=== PATIENT | female | born 2000 | race African-American/Black ===

== ENCOUNTER 2024-06-18 18:22 | Emergency (ER) | payer OTHER ==
[2024-06-18] MEDS ORDERED: ALBUTEROL 2.5 MG/3 ML NEB SOL ONE ×2 (18:57→19:49)
[2024-06-18] MEDS ORDERED: predniSONE 20 MG TAB ONE (18:57)
[2024-06-18] MEDS ORDERED: IPRATROPIUM BROM 0.5MG/2.5ML ONE (18:57)
[2024-06-18 19:42] LABS: SARS-CoV-2 Antigen CONTROL BLUE LINE VIS/BG OK; SARS-CoV-2 Antigen Rapid Res Negative (Negative)
[2024-06-18] MEDS ORDERED: HYDROCODONE/CHLORPHEN 5 ML/OSYR ONE (19:49)
--- NOTE | 2024-06-18 20:10 | RAD REPORT ---
EXAMINATION: ONE VIEW CHEST XR CLINICAL INDICATION: Female, 23 years old.DYSPNEA TECHNIQUE: 1 View, AP supine, X-ray of the chest was performed. [id number]. COMPARISON: No prior exam. FINDINGS: Lungs and pleura: Clear lungs. No effusion. Heart and mediastinum: Normal heart size. Unremarkable mediastinal contours. Osseous structures: No acute abnormality. Tubes/lines: None Other: None. IMPRESSION: No acute intrathoracic abnormality.
--- NOTE | 2024-06-18 20:58 | ER ---
Nurse's Notes [facility] Name: Lucie Durbin Age: 23 yrs Sex: Female : 2000 Arrival Date: 06/18/2024 Time: 18:22 Bed 15 Private MD: Diagnosis: Acute bronchitis, unspecified Presentation: 06/18 18:52 Chief complaint: Patient states: cough, SOB and diarrhea that began this morning. ss Coronavirus screen: Client denies travel out of the [place] in the last 14 days. Ebola Screen: Patient denies exposure to infectious person. Patient denies travel to an Ebola-affected area in the 21 days before illness onset. Initial Sepsis Screen: Does the patient meet any 2 criteria? HR > 90 bpm. No. Patient's initial sepsis screen is negative. Does the patient have a suspected source of infection? No. Patient's initial sepsis screen is negative. Risk Assessment: Do you want to hurt yourself or someone else? Patient reports no desire to harm self or others. Onset of symptoms was June 18, 2024. 18:52 Method Of Arrival: Ambulatory ss 18:52 Acuity: TEGAN 3 ss Triage Assessment: 18:54 General: Appears in no apparent distress. comfortable, Behavior is calm, cooperative. ss Respiratory: Airway is patent Respiratory effort is even, unlabored, Breath sounds with wheezes bilaterally. 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 - Infectious Disease History:: Denies. - Social history:: Smoking status: Reported history of juuling and/or vaping. Screenin:14 [facility] ED Fall Risk Assessment (Adult) History of falling in the last 3 months, al5 including since admission No falls in past 3 months (0 pts) Confusion or Disorientation No (0 pts) Intoxicated or Sedated No (0 pts) Impaired Gait No (0 pts) Mobility Assist Device Used No (0 pt) Altered Elimination No (0 pt) Score/Fall Risk Level 0 - 2 = Low Risk Oriented to surroundings, Maintained a safe environment, Hourly rounding (assess needs \T\ fall precautionary measures) done. Abuse screen: Denies threats or abuse. Denies injuries from another. Nutritional screening: No deficits noted. Tuberculosis screening: No symptoms or risk factors identified. Assessment: 19:14 General: Appears in no apparent distress. Behavior is calm, cooperative. Pain: Denies al5 pain. Neuro: Level of Consciousness is awake, alert, obeys commands, Oriented to person, place, time, situation. Cardiovascular: Capillary refill < 3 seconds Patient's skin is warm and dry. Respiratory: Airway is patent Respiratory effort is even, unlabored, Respiratory pattern is regular, symmetrical, Breath sounds with wheezes. Respiratory: Reports shortness of breath. GI: Abdomen is flat, non-distended, patient states she has been experiencing some nausea. : No signs and/or symptoms were reported regarding the genitourinary system. EENT: No signs and/or symptoms were reported regarding the EENT system. Derm: Skin is intact, Skin is pink, warm \T\ dry. normal. Musculoskeletal: No signs and/or symptoms reported regarding the musculoskeletal system. 21:08 Reassessment: Patient appears in no apparent distress at this time. Patient and/or al5 family updated on plan of care and expected duration. Pain level reassessed. Patient is alert, oriented x 3, equal unlabored respirations, skin warm/dry/pink. Patient states feeling better. Patient states symptoms have improved. Vital Signs: 18:52 BP 138 / 83; Pulse 113; Resp 20; Temp 98.6(O); Pulse Ox 98% ; Weight 61.23 kg; Height 5 ss ft. 2 in. ; Pain 0/10; 19:17 BP 119 / 85; Pulse 102; Resp 19; Pulse Ox 100% on Nebulizer Mask; al5 19:30 BP 111 / 79; Pulse 102; Resp 18; Pulse Ox 100% on R/A; al5 20:00 BP 120 / 77; Pulse 100; Resp 18; Pulse Ox 100% on R/A; al5 20:30 BP 113 / 74; Pulse 88; Resp 18; Pulse Ox 100% on R/A; al5 21:00 BP 103 / 74; Pulse 85; Resp 18; Pulse Ox 98% on R/A; al5 18:52 Body Mass Index 24.69 (61.23 kg, 157.48 cm) ss 18:52 Pain Scale: Adult ss ED Course: 18:37 Patient arrived in ED. im 18:38 Su Chisholm FNP-C [facility]. kb 18:38 Ward Friedman MD is Attending Physician. kb 18:54 Triage completed. ss 18:54 Arm band placed on right wrist. ss 19:14 Delia Velasco, VIOLETTA is Primary Nurse. al5 19:14 Patient has correct armband on for positive identification. Bed in low position. Call al5 light in reach. Side rails up X 1. Provided Education on: medications. 19:14 No provider procedures requiring assistance completed. al5 19:16 Flu Sent. al5 19:16 SARS-COV-2 Antigen Rapid Sent. al5 19:52 Chest Single View XRAY In Process Unspecified. EDMS 21:09 Patient did not have IV access during this emergency room visit. al5 Administered Medications: 19:16 Drug: Albuterol Inhalation 2.5 mg Inhalation once Route: Inhalation; al5 19:50 Follow up: Response: Other; breathing is better, but is still experiencing shortness of al5 breath 19:16 Drug: Ipratropium Inhalation Aerosol 0.5 mg Inhalation once Route: Inhalation; al5 19:16 Drug: predniSONE PO 40 mg PO once Route: PO; al5 20:12 Follow up: Response: No adverse reaction; Wheezing diminished al5 19:52 Drug: Albuterol Inhalation 2.5 mg Inhalation once Route: Inhalation; al5 20:13 Follow up: Response: Other; feeling better al5 19:52 Drug: Tussionex Pennkinetic ER PO Suspension 5 ml PO once Route: PO; al5 20:12 Follow up: Response: No adverse reaction; No adverse reaction; cough decreased al5 Medication: 19:14 VIS not applicable for this client. al5 Outcome: 20:58 Discharge ordered by . kb 21:09 Discharged to home ambulatory, al5 21:09 Condition: good 21:09 Discharge instructions given to patient, Instructed on discharge instructions, follow up and referral plans. medication usage, Demonstrated understanding of instructions, follow-up care, medications, Prescriptions given X 3, 21:10 Patient left the ED. al5 Signatures: Dispatcher [employer] EDIA Su Chisholm FNP-C FNP-Ckb Blanchard, Shelby, RN RN ss Kathleen Dwyer Amanda, RN RN al5
--- NOTE | 2024-06-18 20:58 | EDPHYS ---
Physician Documentation [facility] Name: Lucie Durbin Age: 23 yrs Sex: Female : 2000 Arrival Date: 06/18/2024 Time: 18:22 Bed 15 Private MD: ED Physician Ward Friedman HPI: 06/18 21:10 This 23 yrs old Black Female presents to ER via Ambulatory with complaints of Flu kb Symptoms. 21:10 Pt is a 23 year old female with a history of childhood asthma who presents for kb shortness of breath, cough and diarrhea that started this morning. Denies fever, chills, sore throat. . 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 - Infectious Disease History:: Denies. - Social history:: Smoking status: Reported history of juuling and/or vaping. ROS: 21:09 Constitutional: As per HPI kb Exam: 21:09 Constitutional: This is a well developed, well nourished patient who is awake, alert, kb and in no acute distress. Head/Face: Normocephalic, atraumatic. ENT: Moist Mucous membranes Cardiovascular: Regular rate Abdomen/GI: Soft, non-tender. No distention Skin: Warm, dry with normal turgor. Normal color. MS/ Extremity: Pulses equal, no cyanosis. Neurovascular intact. Full, normal range of motion. Neuro: Awake and alert, GCS 15, oriented to person, place, time, and situation. Moves all extremities. Normal gait. 21:09 Respiratory: the patient does not display signs of respiratory distress, Respirations: normal, Breath sounds: wheezing: inspiratory expiratory that is mild, is scattered, Vital Signs: 18:52 BP 138 / 83; Pulse 113; Resp 20; Temp 98.6(O); Pulse Ox 98% ; Weight 61.23 kg; Height 5 ss ft. 2 in. ; Pain 0/10; 19:17 BP 119 / 85; Pulse 102; Resp 19; Pulse Ox 100% on Nebulizer Mask; al5 19:30 BP 111 / 79; Pulse 102; Resp 18; Pulse Ox 100% on R/A; al5 20:00 BP 120 / 77; Pulse 100; Resp 18; Pulse Ox 100% on R/A; al5 20:30 BP 113 / 74; Pulse 88; Resp 18; Pulse Ox 100% on R/A; al5 21:00 BP 103 / 74; Pulse 85; Resp 18; Pulse Ox 98% on R/A; al5 18:52 Body Mass Index 24.69 (61.23 kg, 157.48 cm) ss 18:52 Pain Scale: Adult ss MDM: 18:38 Patient medically screened. kb 21:09 Differential diagnosis: flu, covid, pneumonia, bronchitis. Data reviewed: vital signs, kb nurses notes. I considered the following discharge prescriptions or medication management in the emergency department I discussed and recommended Over The Counter medications, Antibiotics: At this time antibiotics are not recommended. Counseling: I had a detailed discussion with the patient and/or guardian regarding the historical points, exam findings, and any diagnostic results supporting the discharge/admit diagnosis, lab results, radiology results, the need for outpatient follow up, a family practitioner, to return to the emergency department if symptoms worsen or persist or if there are any questions or concerns that arise at home. 06/18 18:54 Order name: Flu; Complete Time: 19:45 kb 06/18 18:54 Order name: SARS-COV-2 Antigen Rapid; Complete Time: 19:45 kb 06/18 18:54 Order name: Chest Single View XRAY; Complete Time: 20:11 kb Administered Medications: 19:16 Drug: Albuterol Inhalation 2.5 mg Inhalation once Route: Inhalation; al5 19:50 Follow up: Response: Other; breathing is better, but is still experiencing shortness of al5 breath 19:16 Drug: Ipratropium Inhalation Aerosol 0.5 mg Inhalation once Route: Inhalation; al5 19:16 Drug: predniSONE PO 40 mg PO once Route: PO; al5 20:12 Follow up: Response: No adverse reaction; Wheezing diminished al5 19:52 Drug: Albuterol Inhalation 2.5 mg Inhalation once Route: Inhalation; al5 20:13 Follow up: Response: Other; feeling better al5 19:52 Drug: Tussionex Pennkinetic ER PO Suspension 5 ml PO once Route: PO; al5 20:12 Follow up: Response: No adverse reaction; No adverse reaction; cough decreased al5 Disposition Summary: 06/18/24 20:58 Discharge Ordered Notes: Location: Home kb Condition: Stable kb Diagnosis - Acute bronchitis, unspecified kb Followup: kb - With: Emergency Department - When: As needed - Reason: Worsening of condition Followup: kb - With: Private Physician - When: 2 - 3 days - Reason: Recheck today's complaints, Continuance of care, Re-evaluation by your physician Discharge Instructions: - Acute Bronchitis, Adult, [id number] kb - Discharge Summary Sheet al5 Forms: - Medication Reconciliation Form kb - Antibiotic Education kb - Prescription Opioid Use kb - Patient Portal Instructions kb - Leadership Thank You Letter kb - Work release form al5 Prescriptions: - albuterol sulfate 90 mcg/actuation Inhalation HFA Aerosol Inhaler - inhale 2 puff INHALATION route every 4 to 6 hours As needed; 1 unit; Refills: kb 0, Product Selection Permitted - Prednisone 20 mg Oral Tablet - take 1 tablet ORAL route once daily for 5 days; 5 tablet; Refills: 0, Product kb Selection Permitted - Tessalon Perles 100 mg Oral Capsule - take 1 capsule ORAL route every 8 hours As needed; 15 capsule; Refills: 0, kb Product Selection Permitted Signatures: Dispatcher [employer] Su Herrera, BUSINESS SERVICES DIRECTOR-C BUSINESS SERVICES DIRECTOR-Margarette Shen, RN RN Delia Velasco RN RN al5 Corrections: (The following items were deleted from the chart) 18:55 18:55 Influenza Screen (A \T\ B)+BA.LAB.BRZ ordered. EDMS EDMS 18:55 18:55 SARS-COV-2 Antigen Rapid+I.LAB.BRZ ordered. EDMS EDMS
[2024-06-18 21:22] VITALS: TEMP 98.6
[2024-06-18 21:28] VITALS: BP 103/74; O2SAT 98
== END 2024-06-18 21:10 | disposition home or self-care (01) ==
LOC: ER 18:22
DX: J20.9 Acute bronchitis, unspecified (principal); Z11.52 Encounter for screening for COVID-19
CPT/HCPCS: 36415; 87804 ×2; 71045; 99284; 87811; J7512; J7613 ×2; J7644